=== PATIENT | female | born 1955 | race Two or more races ===

== ENCOUNTER 2017-10-21 17:06 | Inpatient (IN) | payer BC ==
[2017-10-21 19:36] LABS: ADD MAN DIFF? NO
[2017-10-21 19:38] LABS: BASOPHIL # 0.1 10^3/ul (0.0-0.1); BASOPHILS % 0.7 % (0.0-2.0); EOSINOPHILS # 0.4 10^3/ul (0.0-0.5); EOSINOPHILS % 2.4 % (0.0-7.0); HEMATOCRIT 35.7 % (37.0-47.0); HEMOGLOBIN 11.1 g/dl (12.0-16.0); LYMPHOCYTES # 1.9 10^3/ul (0.8-2.9); LYMPHOCYTES % 12.5 % (15.0-51.0); MEAN CORPUSCULAR HEMOGLOBIN 26.2 pg (29.0-33.0); MEAN CORPUSCULAR HGB CONC 31.1 g/dl (32.0-37.0); MEAN CORPUSCULAR VOLUME 84.4 fl (82.0-101.0); MEAN PLATELET VOLUME 9.7 fl (7.4-10.4); MONOCYTE # 1.2 10^3/ul (0.3-0.9); MONOCYTES % 7.6 % (0.0-11.0); NEUTROPHIL # 11.6 10^3/ul (1.6-7.5); NEUTROPHILS % 76.3 % (39.0-77.0); PLATELET COUNT 322 10^3/UL (140-415); RED BLOOD COUNT 4.23 10^6/ul (4.20-5.40); RED CELL DISTRIBUTION WIDTH 17.9 % (11.5-14.5)
[2017-10-21 19:38] LABS: WHITE BLOOD COUNT 15.3 10^3/ul (4.8-10.8)
[2017-10-21 19:43] LABS: AADO2 Arterial 135.8 mmHg (7.0-24.0); Allen Test ACCEPTAB; Arterial Base Excess -0.2 mmol/L (-3.0-3); Arterial Blood Gas Oxygen Sat 89.7 mmHG (95.0-98.0); Arterial COHb 0.2 % (0.0-3.0); Arterial Fraction of Oxyhgb 89.2 % (93.0-99.0); Arterial MetHb 0.4 % (0.0-1.5); Arterial Total Hemglobin 11.8 g/dl (12.0-18.0); Arterial pCO2 32.8 mmhg (35-45); MODE NASAL CANNULA; Site Right Radial
[2017-10-21] MEDS: CEFEPIME 2GM/50 ML (PMX) 50 ML IVPB (19:51)
[2017-10-21] MEDS: SODIUM CHLORIDE 0.9% 1L BAG IV* (19:51)
[2017-10-21 19:59] LABS: PROTIME 16.4 Sec (11.9-14.9); PT RATIO 1.3
[2017-10-21 20:03] LABS: ALANINE AMINOTRANSFERASE 49 IU/L (13-69); ALBUMIN 3.5 g/dl (3.3-4.9); ALBUMIN/GLOBULIN RATIO 0.97; ALKALINE PHOSPHATASE 138 IU/L (42-121); ANION GAP 20 (8-16); ASPARTATE AMINO TRANSFERASE 44 IU/L (15-46); BILIRUBIN,INDIRECT 0.2 mg/dl (0-1.1); BILIRUBIN,TOTAL 0.2 mg/dl (0.2-1.3); BLOOD UREA NITROGEN 22 mg/dl (7-20); CALCIUM 8.8 mg/dl (8.4-10.2); CARBON DIOXIDE 24 mmol/L (21-31); CHLORIDE 104 mmol/L (97-110); GLUCOSE 114 mg/dl (70-220); LIPASE 59 U/L (23-300); POTASSIUM 4.5 mmol/L (3.5-5.1); SODIUM 143 mmol/L (135-144); TOTAL PROTEIN 7.1 g/dl (6.1-8.1)
[2017-10-21 20:04] LABS: LACTIC ACID 1.4 mmol/L (0.5-2.0)
[2017-10-21 20:13] LABS: TROPONIN-I 0.086 ng/ml (0.00-0.12)
[2017-10-21] MEDS: SOD CHLORIDE 0.9% 100 ML (20:25)
[2017-10-21] MEDS: IOHEXOL 100 ML (20:25)
[2017-10-21] MEDS: PIPER-TAZO 3.375 GM IV (PMX) 100 ML IVPB (20:45)
[2017-10-21] MEDS: morphine 4 MG/ML VIAL IV (21:42)
[2017-10-21] MEDS ORDERED: ONDANSETRON 4 MG INJ IV (22:00)
[2017-10-21] MEDS: VANCOMYCIN 1 GM (PMX) 250 ML IVPB (22:18)
[2017-10-21] MEDS: METHOCARBAMOL 750 MG TAB PO (22:19)
[2017-10-21 22:25] LABS: LACTIC ACID 1.5 mmol/L (0.5-2.0)
[2017-10-21] MEDS: AZITHROMYCIN 500MG/NS (PMX) 250 ML IVPB (22:30)
[2017-10-21] MEDS: CEFTRIAXONE 1 GM/50 ML (PMX) 50 ML IVPB (22:30)
[2017-10-21] MEDS ORDERED: GUAIFENESIN/DM 5ML CUP PO (22:30)
[2017-10-21 23:22] LABS: ADD UMIC YES; UR ASCORBIC ACID NEGATIVE (NEGATIVE); UR BILIRUBIN (Dip) NEGATIVE (NEGATIVE); UR BLOOD (Dip) 2+ mg/dL (NEGATIVE); UR CLARITY CLEAR (CLEAR); UR COLOR STRAW (YELLOW); UR GLUCOSE (Dip) NEGATIVE (NEGATIVE); UR KETONES (Dip) TRACE mg/dL (NEGATIVE); UR LEUKOCYTE ESTERASE (Dip) 1+ Leu/ul (NEGATIVE); UR NITRITE (Dip) NEGATIVE (NEGATIVE); UR RBC 16 /HPF (0-5); UR SPECIFIC GRAVITY (Dip) 1.033 (1.003-1.030); UR SQUAMOUS EPITHELIAL CELL FEW /HPF (FEW); UR TOTAL PROTEIN (Dip) NEGATIVE (NEGATIVE); UR UROBILINOGEN (Dip) NEGATIVE (NEGATIVE); UR WBC 3 /HPF (0-5)
[2017-10-22 01:22] LABS: LACTIC ACID 1.1 mmol/L (0.5-2.0)
[2017-10-22] MEDS: ACETAMINOPHEN 325 MG TAB PO (01:23)
[2017-10-22] MEDS: LEVALBUTEROL (NEB) 0.63 MG/3 ML AMP HHN ×3 (02:45→16:00)
[2017-10-22 06:35] LABS: ADD MAN DIFF? NO
[2017-10-22 06:38] LABS: WHITE BLOOD COUNT 14.4 10^3/ul (4.8-10.8)
[2017-10-22 06:38] LABS: BASOPHIL # 0.1 10^3/ul (0.0-0.1); BASOPHILS % 0.7 % (0.0-2.0); EOSINOPHILS # 0.3 10^3/ul (0.0-0.5); EOSINOPHILS % 2.2 % (0.0-7.0); HEMATOCRIT 31.1 % (37.0-47.0); HEMOGLOBIN 9.6 g/dl (12.0-16.0); LYMPHOCYTES % 13.7 % (15.0-51.0); MEAN CORPUSCULAR HEMOGLOBIN 26.5 pg (29.0-33.0); MEAN CORPUSCULAR HGB CONC 30.9 g/dl (32.0-37.0); MEAN CORPUSCULAR VOLUME 85.9 fl (82.0-101.0); MEAN PLATELET VOLUME 10.5 fl (7.4-10.4); MONOCYTE # 1.2 10^3/ul (0.3-0.9); MONOCYTES % 8.1 % (0.0-11.0); NEUTROPHIL # 10.8 10^3/ul (1.6-7.5); NEUTROPHILS % 74.5 % (39.0-77.0); PLATELET COUNT 263 10^3/UL (140-415); RED BLOOD COUNT 3.62 10^6/ul (4.20-5.40); RED CELL DISTRIBUTION WIDTH 18.3 % (11.5-14.5)
[2017-10-22 07:07] LABS: ANION GAP 16 (8-16); BLOOD UREA NITROGEN 15 mg/dl (7-20); CALCIUM 8.3 mg/dl (8.4-10.2); CARBON DIOXIDE 25 mmol/L (21-31); CHLORIDE 109 mmol/L (97-110); CREATININE 0.72 mg/dl (0.44-1.00); GLUCOSE 98 mg/dl (70-220); POTASSIUM 3.8 mmol/L (3.5-5.1); SODIUM 146 mmol/L (135-144)
[2017-10-22] MEDS: BENAZEPRIL 20 MG TAB PO (08:49)
[2017-10-22] MEDS: ATENOLOL 25 MG TAB PO (08:49)
[2017-10-22] MEDS: PANTOPRAZOLE (EC) 40 MG TAB PO (08:49)
[2017-10-22] MEDS: ENOXAPARIN 40 MG/0.4 ML SYG SC (08:50)
[2017-10-22] MEDS: HYDROCHLOROTHIAZIDE 12.5 MG CAP PO (08:50)
[2017-10-22] MEDS: CEFTRIAXONE 1 GM/50 ML (PMX) 50 ML IVPB (22:35)
[2017-10-22] MEDS: AZITHROMYCIN 500MG/NS (PMX) 250 ML IVPB (22:37)
[2017-10-23] MEDS: LEVALBUTEROL (NEB) 0.63 MG/3 ML AMP HHN ×3 (00:28→16:00)
[2017-10-23] MEDS: ACETAMINOPHEN 500 MG TAB PO ×2 (04:52→22:48)
[2017-10-23] MEDS: LEVOTHYROXINE 50 MCG TAB PO (08:07)
[2017-10-23] MEDS: HYDROCHLOROTHIAZIDE 12.5 MG CAP PO (08:08)
[2017-10-23] MEDS: BENAZEPRIL 20 MG TAB PO (08:09)
[2017-10-23] MEDS: ATENOLOL 25 MG TAB PO (08:09)
[2017-10-23] MEDS: PANTOPRAZOLE (EC) 40 MG TAB PO (08:10)
[2017-10-23] MEDS: ENOXAPARIN 40 MG/0.4 ML SYG SC (08:11)
[2017-10-23] MEDS ORDERED: VANCOMYCIN IV PER PHARMACY XX (13:00)
[2017-10-23] MEDS: CEFEPIME 1GM/50 ML (PMX) 50 ML IVPB ×2 (13:45→22:50)
[2017-10-23] MEDS: VANCOMYCIN 1.5 GM in SOD CHLORIDE 0.9% 250 ML IVPB (15:23)
[2017-10-23 18:00] LABS: IRON 31 ug/dl (35-150)
[2017-10-23 18:10] LABS: % IRON SATURATION 12 % SAT (22-52); TOTAL IRON BINDING CAPACITY 250 ug/dl (241-421)
[2017-10-23 19:08] LABS: FOLATE 11.1 ng/ml (2.8-20.0)
[2017-10-23] MEDS: AZITHROMYCIN 500MG/NS (PMX) 250 ML IVPB (21:32)
[2017-10-24] MEDS: LEVALBUTEROL (NEB) 0.63 MG/3 ML AMP HHN ×3 (00:50→16:00)
[2017-10-24] MEDS: ZOLPIDEM 5 MG TAB PO (00:58)
[2017-10-24] MEDS: VANCOMYCIN 750 MG in DEXTROSE 5% 150 ML IVPB (03:48)
[2017-10-24] MEDS: CEFEPIME 1GM/50 ML (PMX) 50 ML IVPB ×2 (08:45→20:28)
[2017-10-24] MEDS: PANTOPRAZOLE (EC) 40 MG TAB PO (08:45)
[2017-10-24] MEDS: LEVOTHYROXINE 50 MCG TAB PO (08:45)
[2017-10-24] MEDS: ATENOLOL 25 MG TAB PO (08:46)
[2017-10-24] MEDS: BENAZEPRIL 20 MG TAB PO (08:46)
[2017-10-24] MEDS: HYDROCHLOROTHIAZIDE 12.5 MG CAP PO (08:46)
[2017-10-24] MEDS: ENOXAPARIN 40 MG/0.4 ML SYG SC (08:47)
[2017-10-24] MEDS: ACETAMINOPHEN 500 MG TAB PO (08:49)
[2017-10-24] MEDS: DOCUSATE SODIUM 100 MG CAP PO ×2 (10:54→20:28)
[2017-10-24] MEDS: HYDROCODONE/APAP (5/325) TAB PO (10:54)
[2017-10-24] MEDS: AZITHROMYCIN 500MG/NS (PMX) 250 ML IVPB (21:15)
[2017-10-25] MEDS: LEVALBUTEROL (NEB) 0.63 MG/3 ML AMP HHN ×3 (00:24→15:52)
[2017-10-25] MEDS: HYDROCODONE/APAP (5/325) TAB PO (00:28)
[2017-10-25 07:36] LABS: ADD MAN DIFF? NO
[2017-10-25 07:40] LABS: BASOPHIL # 0.1 10^3/ul (0.0-0.1); BASOPHILS % 0.8 % (0.0-2.0); EOSINOPHILS # 0.5 10^3/ul (0.0-0.5); EOSINOPHILS % 5.1 % (0.0-7.0); HEMOGLOBIN 9.4 g/dl (12.0-16.0); LYMPHOCYTES # 1.4 10^3/ul (0.8-2.9); LYMPHOCYTES % 14.6 % (15.0-51.0); MEAN CORPUSCULAR HEMOGLOBIN 26.6 pg (29.0-33.0); MEAN CORPUSCULAR HGB CONC 31.3 g/dl (32.0-37.0); MEAN PLATELET VOLUME 10.5 fl (7.4-10.4); MONOCYTE # 0.8 10^3/ul (0.3-0.9); MONOCYTES % 8.4 % (0.0-11.0); NEUTROPHIL # 6.9 10^3/ul (1.6-7.5); NEUTROPHILS % 70.5 % (39.0-77.0); PLATELET COUNT 250 10^3/UL (140-415); RED BLOOD COUNT 3.53 10^6/ul (4.20-5.40); RED CELL DISTRIBUTION WIDTH 18.2 % (11.5-14.5)
[2017-10-25 07:40] LABS: WHITE BLOOD COUNT 9.8 10^3/ul (4.8-10.8)
[2017-10-25] MEDS: LEVOTHYROXINE 50 MCG TAB PO (07:50)
[2017-10-25 08:09] LABS: ANION GAP 13 (8-16); BLOOD UREA NITROGEN 10 mg/dl (7-20); CALCIUM 8.5 mg/dl (8.4-10.2); CARBON DIOXIDE 30 mmol/L (21-31); CHLORIDE 104 mmol/L (97-110); CREATININE 0.66 mg/dl (0.44-1.00); GLUCOSE 91 mg/dl (70-220); POTASSIUM 3.1 mmol/L (3.5-5.1); SODIUM 144 mmol/L (135-144)
[2017-10-25] MEDS: DOCUSATE SODIUM 100 MG CAP PO ×2 (09:10→20:59)
[2017-10-25] MEDS: PANTOPRAZOLE (EC) 40 MG TAB PO (09:10)
[2017-10-25] MEDS: HYDROCHLOROTHIAZIDE 12.5 MG CAP PO (09:11)
[2017-10-25] MEDS: BENAZEPRIL 20 MG TAB PO (09:11)
[2017-10-25] MEDS: ATENOLOL 25 MG TAB PO (09:12)
[2017-10-25] MEDS: CEFEPIME 1GM/50 ML (PMX) 50 ML IVPB ×2 (09:18→21:00)
[2017-10-25] MEDS: ENOXAPARIN 40 MG/0.4 ML SYG SC (09:18)
[2017-10-25] MEDS: POTASSIUM CHLORIDE 20 MEQ POWDER FOR ORAL SOLN PO (17:02)
== END 2017-10-25 21:50 | disposition short-term general hospital (02) | DRG 871 ==
LOC: MS4 21:57 → E/R 17:06
DX: A41.9 Sepsis, unspecified organism (principal); J18.9 Pneumonia, unspecified organism; J96.01 Acute respiratory failure with hypoxia; N39.0 Urinary tract infection, site not specified; C78.02 Secondary malignant neoplasm of left lung; C78.01 Secondary malignant neoplasm of right lung; R65.20 Severe sepsis without septic shock; I10 Essential (primary) hypertension; E78.5 Hyperlipidemia, unspecified; E03.9 Hypothyroidism, unspecified; D64.9 Anemia, unspecified; D18.09 Hemangioma of other sites; Z85.3 Personal history of malignant neoplasm of breast; Z90.12 Acquired absence of left breast and nipple; Z98.82 Breast implant status
CPT/HCPCS: 36415; 36600; 71045; 71275; 72100; 80048; 80053; 81001; 82607; 82728; 82746; 82803; 83540; 83605; 83690; 84484; 85025; 85610; 85730; 87040; 87086; 87400; 93005; 94640; 94664; 96372; 96374; 96375; 99291-25